=== PATIENT | female | born 1960 | race Caucasian/White ===

== ENCOUNTER 2019-07-05 17:06 | Emergency (ER) | payer OTHER ==
[~2019-07-05] VITALS: Ht 162.6 cm; Wt 56.7 kg
[~2019-07-05 17:06] MED LIST: LEVOTHYROXIN0.025 MG PO; NORCO 5-325 TA1 EACH PO; PERCOCET 5-3251 EACH PO
[2019-07-05 17:52] LABS: ABSOLUTE BASOPHILS 0.1 thou/uL (0.0-0.2); ABSOLUTE LYMPHOCYTES 3.3 thou/uL (0.8-5.3); ABSOLUTE MONOCYTES 0.5 thou/uL (0.0-1.2); HEMOGLOBIN 15.6 gm/dL (12.0-15.0); LYMPHOCYTES 23.9 %; MCHC 34.5 g/dL (28.0-37.0); MCV 89.8 fL (80.0-100.0); MONOCYTES 3.4 %; MPV 7.9 fl. (7.2-11.1); NUCLEATED RBCS 0 /100WBC; PLATELET COUNT* 349 thou/uL (150-400); POLYS 71.7 %; RBC 5.02 mil/uL (4.20-5.00); RDW-CV 13.2 % (10.5-14.5)
[2019-07-05 17:54] LABS: INFLUENZA A ANTIGEN Negative (Negative); INFLUENZA B ANTIGEN Negative (Negative)
[2019-07-05 18:10] LABS: ALBUMIN 4.4 g/dL (3.4-5.0); CALCIUM 10.8 mg/dL (8.5-10.1); POTASSIUM 3.3 mmol/L (3.5-5.1); TOTAL BILIRUBIN 0.4 mg/dL (<0.1-1.0); TOTAL PROTEIN 8.1 g/dL (6.4-8.2)
[2019-07-05] MEDS ORDERED: ZOFRAN ODT4 MG SUBLING (18:21)
[2019-07-05] MEDS ORDERED: PROMETH-CODEIN 65 ML PO (18:21)
[2019-07-05 18:49] VITALS: BP 111/75
== END 2019-07-05 18:51 | disposition home or self-care (01) ==
LOC: M.ERS 17:06
PROVIDERS: Family Medicine
DX: B34.9 Viral infection, unspecified (principal); E05.90 Thyrotoxicosis, unspecified without thyrotoxic crisis or storm; Z90.49 Acquired absence of other specified parts of digestive tract

== ENCOUNTER 2020-02-07 22:01 | Emergency (ER) | payer OTHER ==
[~2020-02-07] VITALS: Ht 162.6 cm; Wt 54.4 kg
[~2020-02-07 22:01] MED LIST changes: +PROMETH-CODEIN 65 ML PO; +ZOFRAN ODT4 MG SUBLING
[2020-02-07] MEDS ORDERED: LEXAPRO 10 MG T10 M1 PO (22:22)
[2020-02-07 22:33] LABS: URINE BLOOD NEGATIVE (Negative); URINE CLARITY CLEAR; URINE COLOR YELLOW; URINE GLUCOSE-RANDOM NEGATIVE (Negative); URINE KETONES NEGATIVE (Negative); URINE LEUKOCYTES-REFLEX NEGATIVE (Negative); URINE NITRITE-REFLEX NEGATIVE (Negative); URINE PROTEIN 2+ (Negative); URINE SPECIFIC GRAVITY >= 1.030 (1.005-1.030)
[2020-02-07 22:35] LABS: ABSOLUTE BASOPHILS 0.1 thou/uL (0.0-0.2); ABSOLUTE EOSINOPHILS 0.1 thou/uL (0.0-0.7); ABSOLUTE LYMPHOCYTES 2.6 thou/uL (0.8-5.3); ABSOLUTE MONOCYTES 0.5 thou/uL (0.0-1.2); ABSOLUTE NEUTROPHILS 9.4 thou/uL (1.6-8.1); BASOPHILS 0.9 %; EOSINOPHILS 0.5 %; HEMATOCRIT 42.6 % (37.0-47.0); HEMOGLOBIN 14.5 gm/dL (12.0-15.0); LYMPHOCYTES 20.2 %; MCH 30.4 pg (26.0-34.0); MCV 89.4 fL (80.0-100.0); NUCLEATED RBCS 0 /100WBC; PLATELET COUNT* 356 thou/uL (150-400); POLYS 74.4 %; RBC 4.76 mil/uL (4.20-5.00); RDW-CV 13.3 % (10.5-14.5); WBC 12.6 thou/uL (4.0-11.0)
[2020-02-07 22:36] LABS: ICTOTEST (BILI CONFIRMATORY) Negative (Negative); URINE BILIRUBIN 1+ (Negative)
[2020-02-07 22:44] LABS: CALCIUM 10.3 mg/dL (8.5-10.1); CREATININE 0.9 mg/dL (0.6-1.3); POTASSIUM 3.2 mmol/L (3.5-5.1)
[2020-02-07 22:48] LABS: CRYSTALS None Seen /LPF (None Seen); HYALINE CASTS 0-3 Few /LPF (None Seen); MUCUS 4-6 Moderate strn/LPF (None Seen); SQUAMOUS >10 Many /LPF (0-3)
[2020-02-07 22:49] LABS: ALBUMIN 4.2 g/dL (3.4-5.0); TOTAL BILIRUBIN 0.8 mg/dL (<0.1-1.0); TOTAL PROTEIN 7.9 g/dL (6.4-8.2)
[2020-02-07 22:49] LABS: BACTERIA-REFLEX 1-9 Few /HPF (None Seen); URINE RBC None Seen /HPF (0-2); URINE WBC-REFLEX 0-5 Rare /HPF (0-5)
[2020-02-07 22:50] LABS: AMP/METHAMP Negative (Negative); BARBITURATES Negative (Negative); BENZODIAZEPINES Negative (Negative); COCAINE Negative (Negative); METHADONE Negative (Negative); OPIATES POSITIVE (Negative); PCP Negative (Negative); THC POSITIVE (Negative)
[2020-02-07] MEDS ORDERED: ZOFRAN ODT4 MG PO (23:57)
[2020-02-08 00:27] VITALS: BP 173/89
== END 2020-02-08 00:27 | disposition home or self-care (01) ==
LOC: M.ERS 22:01
PROVIDERS: Personal Emergency Response Attendant
DX: R11.2 Nausea with vomiting, unspecified (principal); R51 Headache; E03.9 Hypothyroidism, unspecified; Z90.49 Acquired absence of other specified parts of digestive tract; Z79.899 Other long term (current) drug therapy

== ENCOUNTER 2020-07-08 07:45 | Emergency (ER) | payer OTHER ==
[~2020-07-08] VITALS: Ht 162.6 cm; Wt 54.0 kg
[~2020-07-08 07:45] MED LIST changes: +LEXAPRO 10 MG T10 M1 PO; +ZOFRAN ODT4 MG PO
[2020-07-08 09:08] LABS: ABSOLUTE BASOPHILS 0.1 thou/uL (0.0-0.2); ABSOLUTE LYMPHOCYTES 2.8 thou/uL (0.8-5.3); ABSOLUTE MONOCYTES 0.6 thou/uL (0.0-1.2); BASOPHILS 0.9 %; EOSINOPHILS 0.1 %; HEMOGLOBIN 15.3 gm/dL (12.0-15.0); LYMPHOCYTES 29.5 %; MCH 32.8 pg (26.0-34.0); MCV 96.4 fL (80.0-100.0); MONOCYTES 6.7 %; MPV 8.2 fl. (7.2-11.1); NUCLEATED RBCS 0 /100WBC; PLATELET COUNT* 359 thou/uL (150-400); POLYS 62.8 %; RBC 4.67 mil/uL (4.20-5.00); WBC 9.6 thou/uL (4.0-11.0)
[2020-07-08 09:12] LABS: CALCIUM 10.7 mg/dL (8.5-10.1); CREATININE 0.7 mg/dL (0.6-1.3); POTASSIUM 3.4 mmol/L (3.5-5.1)
[2020-07-08 09:21] LABS: ALBUMIN 4.1 g/dL (3.4-5.0); TOTAL BILIRUBIN 0.8 mg/dL (<0.1-1.0); TOTAL PROTEIN 7.7 g/dL (6.4-8.2)
[2020-07-08] MEDS ORDERED: ACETAMINOPHEN-1 EAC2 PO (10:31)
[2020-07-08] MEDS ORDERED: ZOFRAN ODT4 MG PO (10:31)
[2020-07-08 10:45] VITALS: BP 106/60
== END 2020-07-08 10:45 | disposition home or self-care (01) ==
LOC: M.ERS 07:45
PROVIDERS: Personal Emergency Response Attendant
DX: B34.9 Viral infection, unspecified (principal); R11.2 Nausea with vomiting, unspecified; Z20.828 Contact with and (suspected) exposure to other viral communicable diseases; E03.9 Hypothyroidism, unspecified; Z90.49 Acquired absence of other specified parts of digestive tract